=== PATIENT | female | born 1965 | race Asian ===

== ENCOUNTER 2020-09-03 14:16 | Emergency (ER) | payer OTHER, SELFPAY ==
[~2020-09-03] VITALS: Ht 162.6 cm; Wt 63.5 kg
[2020-09-03 14:18] VITALS: Ht 162.6 cm; Wt 63.5 kg
[2020-09-03] MEDS ORDERED: VITAMIN D310000 UNI1 PO (16:12)
[2020-09-03] MEDS ORDERED: MULTIPLE VITAMI1 T13 PO (16:12)
[2020-09-03 16:26] VITALS: BP 91/50
== END 2020-09-03 16:26 | disposition home or self-care (01) ==
LOC: ED 14:16
DX: U07.1 COVID-19 (principal)